=== PATIENT | female | born 1965 | race American Indian/Alaskan Native ===

== ENCOUNTER 2020-08-12 10:49 | Emergency (ER) | payer SELFPAY ==
[2020-08-12] MEDS ORDERED: cloNIDine 0.1 MG TAB PO ONE (11:37)
--- NOTE | 2020-08-12 12:04 | Emergency Department Report ---
ED General Adult HPI - General Chief complaint: High BP Stated complaint: hypertensive Time Seen by Provider: 08/12/20 11:19 Source: patient Mode of arrival: Ambulatory Limitations: No Limitations - History of Present Illness Initial comments: Patient is a 54-year-old female presents emergency room complaints of hypertension. Patient states that her blood pressure has been elevated for some time now. She states that she saw a primary care doctor was placed on nifedipine. Patient states that she has been having side effects further the nifedipine and stopped taking it a week ago. Patient states that she had not been on blood pressure medication for several years. She states that she was previously on a different blood pressure medication a few years ago but does not remember what she was taking at that time. She denies any symptoms. She denies any headache, chest pain, shortness of breath, vision changes, numbness, weakness, speech disturbance, gait disturbance. She denies any other past medical history. No allergies to medications. - Related Data Previous Rx's Medication Instructions Recorded Last Taken Type amLODIPine 10 mg PO DAILY #30 tab 08/12/20 Unknown Rx hydroCHLOROthiazide [Hctz] 12.5 mg PO QDAY #30 capsule 08/12/20 Unknown Rx Allergies Allergy/AdvReac Type Severity Reaction Status Date / Time No Known Allergies Allergy Verified 08/12/20 11:09 ED Review of Systems ROS: Stated complaint: hypertensive Other details as noted in HPI Comment: All other systems reviewed and negative ED Past Medical Hx - Social History Smoking Status: Current Every Day Smoker Substance Use Type: None - Medications Home Medications: Home Medications Medication Instructions Recorded Confirmed Last Taken Type amLODIPine 10 mg PO DAILY #30 tab 08/12/20 Unknown Rx hydroCHLOROthiazide [Hctz] 12.5 mg PO QDAY #30 capsule 08/12/20 Unknown Rx ED Physical Exam - General Limitations: No Limitations General appearance: alert, in no apparent distress - Head Head exam: Present: atraumatic, normocephalic - Eye Eye exam: Present: normal appearance, PERRL, EOMI - ENT ENT exam: Present: mucous membranes moist - Respiratory Respiratory exam: Present: normal lung sounds bilaterally. Absent: respiratory distress, wheezes, rales, rhonchi, stridor, chest wall tenderness, accessory muscle use, decreased breath sounds, prolonged expiratory - Cardiovascular Cardiovascular Exam: Present: regular rate, normal rhythm, normal heart sounds. Absent: systolic murmur, diastolic murmur, rubs, gallop - Neurological Exam Neurological exam: Present: alert, oriented X3, CN II-XII intact, normal gait. Absent: motor sensory deficit - Psychiatric Psychiatric exam: Present: normal affect, normal mood - Skin Skin exam: Present: warm, dry, intact ED Course Vital Signs 08/12/20 08/12/20 08/12/20 11:07 12:35 14:00 Temperature 98.6 F Pulse Rate 93 H 95 H Respiratory 18 Rate Blood Pressure 216/130 186/129 Blood Pressure 186/129 [Left] O2 Sat by Pulse 100 Oximetry ED Medical Decision Making - Lab Data Vital Signs 08/12/20 08/12/20 08/12/20 11:07 12:35 14:00 Temperature 98.6 F Pulse Rate 93 H 95 H Respiratory 18 Rate Blood Pressure 216/130 186/129 Blood Pressure 186/129 [Left] O2 Sat by Pulse 100 Oximetry - Medical Decision Making Patient is a 54-year-old female presents emergency room complaints of hypertension. Patient states that her blood pressure has been elevated for some time now. She states that she saw a primary care doctor was placed on nifedipine. Patient states that she has been having side effects further the nifedipine and stopped taking it a week ago. Patient states that she had not been on blood pressure medication for several years. She states that she was previously on a different blood pressure medication a few years ago but does not remember what she was taking at that time. She denies any symptoms. She denies any headache, chest pain, shortness of breath, vision changes, numbness, weakness, speech disturbance, gait disturbance. She denies any other past medical history. No allergies to medications. Vitals with significantly elevated blood pressure, otherwise stable. Patient is asymptomatic. She has no abnormality on physical examination as documented in chart. Patient given clonidine with mild improvement of blood pressure. Patient has been off blood pressure medication for over a week. Will place patient on amlodipine and hydrochlorothiazide. Advised patient Please take medication as prescribed. Increase your water intake. Eat a low-sodium diet. Incorporate 30 to 60 minutes of aerobic exercise. Follow-up with your primary care doctor. Return to emergency room for any new or worsening symptoms. Critical care attestation.: If time is entered above; I have spent that time in minutes in the direct care of this critically ill patient, excluding procedure time. ED Disposition Clinical Impression: HTN (hypertension) Qualifiers: Hypertension type: unspecified Qualified Code(s): I10 - Essential (primary) hypertension Disposition: TO HOME OR SELFCARE Is pt being admited?: No Does the pt Need Aspirin: No Condition: Stable Instructions: Managing Your Hypertension, Hypertension, Adult, Hypertension (ED) Additional Instructions: Please take medication as prescribed. Increase your water intake. Eat a low- sodium diet. Incorporate 30 to 60 minutes of aerobic exercise. Follow-up with your primary care doctor. Return to emergency room for any new or worsening symptoms. Prescriptions: amLODIPine 10 mg PO DAILY #30 tab hydroCHLOROthiazide [Hctz] 12.5 mg PO QDAY #30 capsule Referrals: TARIK ROJAS MD [Primary Care Provider] - 3-5 Days JÚNIOR ENCARNACION MD [Staff Physician] - 3-[address] [facility] [Provider Group] - 3-5 Days Time of Disposition: 13:14 Print Language: COLOMBIAN
[2020-08-12 12:38] VITALS: BP 186/129
== END 2020-08-12 13:30 | disposition home or self-care (01) ==
LOC: ED 10:49
DX: I10 Essential (primary) hypertension (principal); F17.200 Nicotine dependence, unspecified, uncomplicated; Z79.899 Other long term (current) drug therapy
CPT/HCPCS: 99282

== ENCOUNTER 2020-09-02 03:14 | Observation (INO) | payer SELFPAY ==
[2020-09-02 04:28] LABS: Eosinophils # (Auto) 0.1 K/mm3 (0.0-0.4); Eosinophils % (Auto) 2.9 % (0.0-4.3); Hematocrit 38.1 % (30.3-42.9); Hemoglobin 12.8 gm/dl (10.1-14.3); Lymphocytes # (Auto) 1.6 K/mm3 (1.2-5.4); Lymphocytes % (Auto) 40.7 % (13.4-35.0); Mean Corpuscular HGB Conc 34 % (30-34); Mean Corpuscular Volume 100 fl (79-97); Monocytes # (Auto) 0.6 K/mm3 (0.0-0.8); Monocytes % (Auto) 14.6 % (0.0-7.3); Platelet Count 154 K/mm3 (140-440); Red Blood Count 3.79 M/mm3 (3.65-5.03); Red Cell Distribution Width 14.2 % (13.2-15.2)
--- NOTE | 2020-09-02 04:35 | XRay Report ---
CHEST 1 VIEW 09/02/2020 3:26 AM INDICATION / CLINICAL INFORMATION: Chest Pain. COMPARISON: None available. FINDINGS: SUPPORT DEVICES: None. HEART / MEDIASTINUM: No significant abnormality. LUNGS / PLEURA: No significant pulmonary or pleural abnormality. No pneumothorax. ADDITIONAL FINDINGS: No significant additional findings. IMPRESSION: 1. No acute findings. Signer Name: Les Streeter MD Signed: 09/02/2020 4:31 AM Workstation Name: [id number]
[2020-09-02 04:43] LABS: Alanine Aminotransferase 22 units/L (7-56); Albumin 3.7 g/dL (3.9-5); BUN/Creatinine Ratio 18; Blood Urea Nitrogen 14 mg/dL (7-17); Calcium 8.7 mg/dL (8.4-10.2); Hemolysis Index 0
[2020-09-02 04:50] LABS: INR 0.92 (0.87-1.13)
[2020-09-02 04:51] LABS: Partial Thromboplastin Time 26.8 Sec. (24.2-36.6)
[2020-09-02] MEDS ORDERED: POTASSIUM CHLORIDE ER 20 MEQ TAB PO ONE (05:00)
--- NOTE | 2020-09-02 05:02 | Emergency Department Report ---
ED Chest Pain HPI - General Chief Complaint: Chest Pain Stated Complaint: CHEST PAINS Time Seen by Provider: 09/02/20 03:26 Source: patient Mode of arrival: Ambulatory Limitations: No Limitations - History of Present Illness Initial Comments: 54-year-old female with history of hypertension and TIA is brought in by EMS complaining of chest pain and shortness of breath. The patient reports that she has been having intermittent episodes of chest pain lasting seconds to a minute at a time which feels sharp and in the center of her chest. She also feels short of breath with it. It is coming and going. Her pain is nonradiating. There is no associated palpitations, nausea, sweating, back pain, abdominal pain, focal weakness, sensory changes, or any other symptoms. She does state that she has been drinking alcohol. When asked how much she has been drinking she is unable to give an exact amount but says that she has been drinking liquor. While in route to the hospital in the ambulance she was given full- strength aspirin and 1 dose of nitroglycerin. The patient states that those did not help her symptoms. She briefly had an episode of chest pain during the interview which lasted approximately 30 minutes and then resolved. Severity scale (0 -10): 9 - Related Data Previous Rx's Medication Instructions Recorded Last Taken Type amLODIPine 10 mg PO DAILY #30 tab 08/12/20 Unknown Rx hydroCHLOROthiazide [Hctz] 12.5 mg PO QDAY #30 capsule 08/12/20 Unknown Rx Allergies Allergy/AdvReac Type Severity Reaction Status Date / Time No Known Allergies Allergy Verified 08/12/20 11:09 Heart Score - HEART Score History: Moderately suspicious EKG: Non-specific Age: 45-65 Risk factors: 1-2 risk factors Troponin: < normal limit HEART Score: 4 - EKG Read Time Time EKG Completed: 03:46 EKG Read Time: 03:50 ED Review of Systems ROS: Stated complaint: CHEST PAINS Other details as noted in HPI Constitutional: denies: chills, fever Eyes: denies: eye pain, vision change ENT: denies: throat pain, congestion Respiratory: shortness of breath. denies: cough Cardiovascular: chest pain. denies: palpitations, edema, syncope Gastrointestinal: denies: abdominal pain, nausea, vomiting Genitourinary: denies: dysuria, frequency Musculoskeletal: denies: back pain, joint swelling Skin: denies: rash Neurological: denies: headache, weakness, numbness ED Past Medical Hx - Past Medical History Previous Medical History?: Yes Hx Hypertension: Yes Additional medical history: TIA - Surgical History Additional Surgical History: breast augmentation, facial lac repair - Social History Smoking Status: Current Every Day Smoker - Medications Home Medications: Home Medications Medication Instructions Recorded Confirmed Last Taken Type amLODIPine 10 mg PO DAILY #30 tab 08/12/20 Unknown Rx hydroCHLOROthiazide [Hctz] 12.5 mg PO QDAY #30 capsule 08/12/20 Unknown Rx ED Physical Exam - General Limitations: No Limitations - Other Other exam information: GENERAL: Well developed and well nourished. No acute distress HEAD: Normocephalic. No obvious signs of trauma. ENT: Moist mucous membranes. EYES: Extraocular movements are intact. Pupils are equal round and reactive to light bilaterally NECK: Supple. Full ROM is intact. Trachea is midline. LUNGS: Nonlabored breathing. Equal chest rise bilaterally. Clear to auscultation bilaterally. CARDIOVASCULAR: Regular rate and rhythm. No murmurs or rubs. VASCULAR: Cap refill < 2 seconds ABDOMEN: Abdomen is soft and nondistended. There is no significant tenderness, guarding or rebound. SKIN: Skin is warm and dry NEURO: Patient is awake, alert, and oriented. 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 No focal deficits. Normal motor and sensory exam throughout. Normal speech. MUSCULOSKELETAL: No obvious deformities. No significant tenderness. Normal ROM throughout. BACK/SPINE: No midline tenderness or step-offs of the C/T/L spine. No costovertebral angle tenderness. ED Course Vital Signs 09/02/20 09/02/20 09/02/20 03:34 03:46 04:00 Temperature Pulse Rate 84 90 Respiratory 14 21 Rate Blood Pressure 173/105 187/100 O2 Sat by Pulse 98 98 99 Oximetry 09/02/20 09/02/20 09/02/20 04:01 04:16 04:30 Temperature 97.9 F Pulse Rate 94 H 93 H 86 Respiratory 18 15 16 Rate Blood Pressure 187/100 187/100 187/100 O2 Sat by Pulse 98 97 98 Oximetry 09/02/20 09/02/20 09/02/20 04:56 05:00 05:16 Temperature Pulse Rate Respiratory Rate Blood Pressure 187/100 178/94 178/94 O2 Sat by Pulse 98 98 97 Oximetry 09/02/20 09/02/20 09/02/20 05:30 05:46 06:00 Temperature Pulse Rate 80 81 Respiratory 19 18 Rate Blood Pressure 187/100 187/100 142/87 O2 Sat by Pulse 96 95 95 Oximetry 09/02/20 06:16 Temperature Pulse Rate 80 Respiratory 16 Rate Blood Pressure 142/87 O2 Sat by Pulse 94 Oximetry SHERLEY score - Sherley Score Age > 65: (0) No Aspirin use within the Past 7 Days: (1) Yes 3 or more CAD Risk Factors: (0) No 2 or more Angina events in past 24 hrs: (1) Yes Known CAD with more than 50% Stenosis: (0) No Elevated Cardiac Markers: (0) No ST Deviation Greater than 0.5mm: (0) No SHERLEY Score: 2 ED Medical Decision Making - Lab Data Result diagrams: 09/02/20 03:48 09/02/20 03:48 Labs 09/02/20 09/02/20 09/02/20 03:48 03:48 03:48 WBC 3.9 L RBC 3.79 Hgb 12.8 Hct 38.1 MCV 100 H MCH 34 H MCHC 34 RDW 14.2 Plt Count 154 Lymph % (Auto) 40.7 H [place] % (Auto) 14.6 H Eos % (Auto) 2.9 Baso % (Auto) 1.0 Lymph # (Auto) 1.6 [place] # (Auto) 0.6 Eos # (Auto) 0.1 Baso # (Auto) 0.0 Seg Neutrophils % 40.8 Seg Neutrophils # 1.6 L PT 12.9 INR 0.92 APTT 26.8 Sodium Potassium Chloride Carbon Dioxide Anion Gap BUN Creatinine Estimated GFR BUN/Creatinine Ratio Glucose POC Glucose Calcium Magnesium Total Bilirubin AST ALT Alkaline Phosphatase Troponin T NT-Pro-B Natriuret Pep Total Protein Albumin Albumin/Globulin Ratio Lipase TSH HCG, Qual Negative Plasma/Serum Alcohol 09/02/20 09/02/20 09/02/20 03:48 03:48 03:48 WBC RBC Hgb Hct MCV MCH MCHC RDW Plt Count Lymph % (Auto) [place] % (Auto) Eos % (Auto) Baso % (Auto) Lymph # (Auto) [place] # (Auto) Eos # (Auto) Baso # (Auto) Seg Neutrophils % Seg Neutrophils # PT INR APTT Sodium 145 Potassium 3.4 L Chloride 106.7 Carbon Dioxide 25 Anion Gap 17 BUN 14 Creatinine 0.8 Estimated GFR > 60 BUN/Creatinine Ratio 18 Glucose 71 POC Glucose Calcium 8.7 Magnesium 1.90 Total Bilirubin 0.20 AST 38 ALT 22 Alkaline Phosphatase 78 Troponin T < 0.010 NT-Pro-B Natriuret Pep 74.09 Total Protein 7.0 Albumin 3.7 L Albumin/Globulin Ratio 1.1 Lipase 15 TSH 0.645 HCG, Qual Plasma/Serum Alcohol 09/02/20 09/02/20 04:11 05:19 WBC RBC Hgb Hct MCV MCH MCHC RDW Plt Count Lymph % (Auto) [place] % (Auto) Eos % (Auto) Baso % (Auto) Lymph # (Auto) [place] # (Auto) Eos # (Auto) Baso # (Auto) Seg Neutrophils % Seg Neutrophils # PT INR APTT Sodium Potassium Chloride Carbon Dioxide Anion Gap BUN Creatinine Estimated GFR BUN/Creatinine Ratio Glucose POC Glucose 64 L Calcium Magnesium Total Bilirubin AST ALT Alkaline Phosphatase Troponin T NT-Pro-B Natriuret Pep Total Protein Albumin Albumin/Globulin Ratio Lipase TSH HCG, Qual Plasma/Serum Alcohol 0.28 H - EKG Data -: EKG Interpreted by Me - EKG Data 09/02/20 05:24 Normal sinus rhythm. Normal axis. Normal intervals. LVH associated changes. No significant ST segment or T wave abnormalities. - Radiology Data CHEST 1 VIEW 09/02/2020 3:26 AM INDICATION / CLINICAL INFORMATION: Chest Pain. COMPARISON: None available. FINDINGS: SUPPORT DEVICES: None. HEART / MEDIASTINUM: No significant abnormality. LUNGS / PLEURA: No significant pulmona ry or pleural abnormality. No pneumothorax. ADDITIONAL FINDINGS: No significant additional findings. IMPRESSION: 1. No acute findings. Signer Name: eLs Streeter MD Signed: 09/02/2020 3:31 AM Workstation Name: [id number] - Medical Decision Making 54-year-old female who presents complaining of recurrent mid substernal chest pain with associated shortness of breath for the past few hours. She admits to drinking liquor. Patient was given aspirin and nitroglycerin in the ambulance. She is afebrile and with normal vital signs other than elevated blood pressure. Physical examination reveals no significant abnormalities. We will send a full set of labs and obtain EKG and chest x-ray. The patient was told to alert her nurse or other staff she had her chest pain return. On repeat assessment at 4:30 AM, she is lying comfortably in the bed. She reports no new symptoms. Labs have resulted and reveal no significant leukocytosis or anemia. Creatinine is within normal range and there are no significant electrolyte abnormalities with the exception of mild hypokalemia and potassium of 3.4. Initial troponin is negative. The patient's heart score is 4. The patient's chest x-ray is negative. I have ordered 40 mEq of potassium. On repeat assessment again at 5:15 AM, the patient is lying comfortably in the bed and reports no new chest pain or any other symptoms. I spoke to her about the fact that given her symptoms and her heart score, she should be admitted to the hospital for further work-up and management. She expressed understanding and agreement with this plan of care. At 5:10 AM, I spoke with Dr. Lieberman, the on-call hospitalist regarding the case and he accepts the patient for admission and will assume care. Critical care attestation.: If time is entered above; I have spent that time in minutes in the direct care of this critically ill patient, excluding procedure time. ED Disposition Clinical Impression: Hypokalemia, Angina pectoris, Alcohol intoxication Disposition: OP ADMIT IP TO THIS HOSP Is pt being admited?: Yes Condition: Stable
[2020-09-02] MEDS ORDERED: traMADol 50 MG TAB PO PRN (05:33)
[2020-09-02] MEDS ORDERED: NITROGLYCERIN 0.4 MG TAB SUBL SL PRN (05:33)
[2020-09-02] MEDS ORDERED: MORPHINE 4 MG/1 ML INJ IV PRN (05:33)
[2020-09-02] MEDS ORDERED: ACETAMINOPHEN 325 MG TAB PO PRN (05:33)
--- NOTE | 2020-09-02 05:41 | History and Physical Report ---
History of Present Illness Date of examination: 09/02/20 Date of admission: 09/01/20 Chief complaint: Chest pain History of present illness: 54-year-old female with past medical history of TIA and hypertension was brought to the emergency room because of chest pain and shortness of breath. Patient complained of chest pain which is sharp center of the chest 9/10 off and on for last couple of hours . She also feels short of breath with it. It is coming and going. Her pain is nonradiating. There is no associated palpitations, nausea, sweating, back pain, abdominal pain, focal weakness, sensory changes, or any other symptoms. She does state that she has been drinking alcohol. When asked how much she has been drinking she is unable to give an exact amount but says that she has been drinking liquor. While in route to the hospital in the ambulance she was given full-strength aspirin and 1 dose of nitroglycerin. The patient states that those did not help her symptoms. She briefly had an episode of chest pain in the emergency room Initial cardiac enzyme is negative daily troponin is 0.010 Past History Past Medical History: hypertension, stroke Medications and Allergies Allergies Allergy/AdvReac Type Severity Reaction Status Date / Time No Known Allergies Allergy Verified 08/12/20 11:09 Home Medications Medication Instructions Recorded Confirmed Last Taken Type amLODIPine 10 mg PO DAILY #30 tab 08/12/20 Unknown Rx hydroCHLOROthiazide [Hctz] 12.5 mg PO QDAY #30 capsule 08/12/20 Unknown Rx Review of Systems Cardiovascular: chest pain, shortness of breath Respiratory: shortness of breath Exam - Constitutional Vitals: Temp Pulse Resp BP Pulse Ox 97.9 F 86 16 187/100 98 09/02/20 04:01 09/02/20 04:30 09/02/20 04:30 09/02/20 04:30 09/02/20 04:30 General appearance: Present: no acute distress, well-nourished - EENT Eyes: Present: PERRL ENT: hearing intact, clear oral mucosa - Neck Neck: Present: supple, normal ROM - Respiratory Respiratory effort: normal Respiratory: bilateral: CTA - Cardiovascular Heart Sounds: Present: S1 & S2. Absent: rub, click - Extremities Extremities: pulses symmetrical, No edema Peripheral Pulses: within normal limits - Abdominal General gastrointestinal: Present: soft, non-tender, non-distended, normal bowel sounds Female genitourinary: Present: normal - Integumentary Integumentary: Present: clear, warm, dry - Musculoskeletal Musculoskeletal: gait normal, strength equal bilaterally - Psychiatric Psychiatric: appropriate mood/affect, intact judgment & insight - Neurologic Neurologic: CNII-XII intact, moves all extremities HEART Score - HEART Score EKG: Non-specific Age: 45-65 Risk factors: 1-2 risk factors Troponin: Troponin T < 0.010 ng/mL (0.00-0.029) 09/02/20 03:48 Troponin: < normal limit Results - Labs CBC & Chem 7: 09/02/20 03:48 09/02/20 03:48 Labs: Laboratory Last Values WBC 3.9 K/mm3 (4.5-11.0) L 09/02/20 03:48 RBC 3.79 M/mm3 (3.65-5.03) 09/02/20 03:48 Hgb 12.8 gm/dl (10.1-14.3) 09/02/20 03:48 Hct 38.1 % (30.3-42.9) 09/02/20 03:48 MCV 100 fl (79-97) H 09/02/20 03:48 MCH 34 pg (28-32) H 09/02/20 03:48 MCHC 34 % (30-34) 09/02/20 03:48 RDW 14.2 % (13.2-15.2) 09/02/20 03:48 Plt Count 154 K/mm3 (140-440) 09/02/20 03:48 Lymph % (Auto) 40.7 % (13.4-35.0) H 09/02/20 03:48 [place] % (Auto) 14.6 % (0.0-7.3) H 09/02/20 03:48 Eos % (Auto) 2.9 % (0.0-4.3) 09/02/20 03:48 Baso % (Auto) 1.0 % (0.0-1.8) 09/02/20 03:48 Lymph # (Auto) 1.6 K/mm3 (1.2-5.4) 09/02/20 03:48 [place] # (Auto) 0.6 K/mm3 (0.0-0.8) 09/02/20 03:48 Eos # (Auto) 0.1 K/mm3 (0.0-0.4) 09/02/20 03:48 Baso # (Auto) 0.0 K/mm3 (0.0-0.1) 09/02/20 03:48 Seg Neutrophils % 40.8 % (40.0-70.0) 09/02/20 03:48 Seg Neutrophils # 1.6 K/mm3 (1.8-7.7) L 09/02/20 03:48 PT 12.9 Sec. (12.2-14.9) 09/02/20 03:48 INR 0.92 (0.87-1.13) 09/02/20 03:48 APTT 26.8 Sec. (24.2-36.6) 09/02/20 03:48 Sodium 145 mmol/L (137-145) 09/02/20 03:48 Potassium 3.4 mmol/L (3.6-5.0) L 09/02/20 03:48 Chloride 106.7 mmol/L (98-107) 09/02/20 03:48 Carbon Dioxide 25 mmol/L (22-30) 09/02/20 03:48 Anion Gap 17 mmol/L 09/02/20 03:48 BUN 14 mg/dL (7-17) 09/02/20 03:48 Creatinine 0.8 mg/dL (0.6-1.2) 09/02/20 03:48 Estimated GFR > 60 ml/min 09/02/20 03:48 BUN/Creatinine Ratio 18 % 09/02/20 03:48 Glucose 71 mg/dL (65-100) 09/02/20 03:48 POC Glucose 64 mg/dL (70-105) L 09/02/20 04:11 Calcium 8.7 mg/dL (8.4-10.2) 09/02/20 03:48 Magnesium 1.90 mg/dL (1.7-2.3) 09/02/20 03:48 Total Bilirubin 0.20 mg/dL (0.1-1.2) 09/02/20 03:48 AST 38 units/L (5-40) 09/02/20 03:48 ALT 22 units/L (7-56) 09/02/20 03:48 Alkaline Phosphatase 78 units/L (35-129) 09/02/20 03:48 Troponin T < 0.010 ng/mL (0.00-0.029) 09/02/20 03:48 NT-Pro-B Natriuret Pep 74.09 pg/mL (0-900) 09/02/20 03:48 Total Protein 7.0 g/dL (6.3-8.2) 09/02/20 03:48 Albumin 3.7 g/dL (3.9-5) L 09/02/20 03:48 Albumin/Globulin Ratio 1.1 % 09/02/20 03:48 Lipase 15 units/L (13-60) 09/02/20 03:48 TSH 0.645 mlU/mL (0.270-4.200) 09/02/20 03:48 HCG, Qual Negative (Negative) 09/02/20 03:48 - Imaging and Cardiology Chest x-ray: report reviewed Assessment and Plan VTE prophylaxis?: Chemical Plan of care discussed with patient/family: Yes - Patient Problems (1) Acute coronary syndrome Current Visit: Yes Status: Acute Plan to address problem: Admit to cardiac telemetry. Aspirin 81 mg p.o. daily. Lipitor 40 mg p.o. daily. Nitroglycerin as needed. Serial cardiac enzyme. Nuclear stress test Lexiscan. Consult cardiology if needed (2) Hypertension Current Visit: Yes Status: Acute Plan to address problem: Norvasc 10 mg p.o. daily. Hydrochlorothiazide 12.5 mg p.o. daily. We will monitor the blood pressure closely (3) TIA (transient ischemic attack) Current Visit: Yes Status: Acute Plan to address problem: Aspirin 81 mg p.o. daily. Lipitor 40 mg p.o. daily. We will monitor the patient closely (4) Alcohol abuse Current Visit: Yes Status: Acute Plan to address problem: Patient counseled regarding quit drinking. We will put the patient on banana bag including thiamine and folic acid (5) Hypokalemia Current Visit: Yes Status: Acute Plan to address problem: Potassium is supplemented. Recheck BMP in the morning (6) DVT prophylaxis Current Visit: Yes Status: Acute Plan to address problem: Heparin 5000 units subcu every 8 hours for DVT prophylaxis. Protonix 40 mg p.o. daily for GI prophylaxis. Patient is a full code
[2020-09-02 05:42] LABS: Bilirubin,Urine NEG (Negative); Blood,Urine MOD (Negative); Color,Urine Yellow (Yellow); Mucus,Urine FEW /HPF; Protein,Urine <15 mg/dL mg/dL (Negative); WBC,Urine < 1.0 /HPF (0.0-6.0)
[2020-09-02 05:46] LABS: Amphetamine Screen,Urine PRESUMPTIVE NEGATIVE; Benzodiazepines Screen,Urine PRESUMPTIVE NEGATIVE; Cannabinoid Screen,Urine PRESUMPTIVE NEGATIVE; Cocaine Screen,Urine PRESUMPTIVE NEGATIVE; Methadone Screen,Urine PRESUMPTIVE NEGATIVE; Opiate Screen,Urine PRESUMPTIVE NEGATIVE
[2020-09-02 08:00] LABS: Blood Urea Nitrogen 12 mg/dL (7-17); Calcium 8.9 mg/dL (8.4-10.2); Hemolysis Index 0
[2020-09-02 08:01] LABS: BUN/Creatinine Ratio 17
[2020-09-02 08:03] LABS: Eosinophils # (Auto) 0.1 K/mm3 (0.0-0.4); Eosinophils % (Auto) 2.8 % (0.0-4.3); Hematocrit 38.4 % (30.3-42.9); Hemoglobin 13.1 gm/dl (10.1-14.3); Lymphocytes # (Auto) 1.7 K/mm3 (1.2-5.4); Lymphocytes % (Auto) 45.3 % (13.4-35.0); Mean Corpuscular HGB Conc 34 % (30-34); Mean Corpuscular Volume 100 fl (79-97); Monocytes # (Auto) 0.5 K/mm3 (0.0-0.8); Monocytes % (Auto) 14.1 % (0.0-7.3); Platelet Count 154 K/mm3 (140-440); Red Blood Count 3.83 M/mm3 (3.65-5.03); Red Cell Distribution Width 14.3 % (13.2-15.2)
[2020-09-02] MEDS ORDERED: REGADENOSON 0.4 MG/5 ML INJ IV ONE ×2 (08:35→08:36)
[2020-09-02] MEDS: THIAMINE 100 MG, FOLIC ACID 1 MG, MULTIPLE VITAMIN INJ, ADULT 10 ML in SODIUM CHLORIDE ... IV ONE ×2 (08:43→11:26)
[2020-09-02] MEDS ORDERED: hydrALAZINE 20 MG/1 ML INJ IV SCH (09:00)
--- NOTE | 2020-09-02 09:55 | Electrocardiograph Report ---
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
[2020-09-02] MEDS ORDERED: amLODIPine 10 MG TAB PO SCH (10:00)
[2020-09-02] MEDS: NICOTINE 21 MG/24 HR PATCH TD SCH (11:20)
[2020-09-02] MEDS: PANTOPRAZOLE 40 MG TAB PO SCH (11:21)
[2020-09-02] MEDS: hydroCHLOROthiazide 12.5 MG CAP PO SCH (11:21)
[2020-09-02] MEDS ORDERED: hydrALAZINE 20 MG/1 ML INJ IV PRN (11:30)
--- NOTE | 2020-09-02 12:00 | Nuclear Medicine Report ---
APPROVED REPORT Exam: Nuclear Stress Test Indication: Chest pain BMI: 0 Stress Test Details HR Max Heart Rate (APMHR): 166.160210 bpm Target HR (85% APMHR): 141.352174 bpm BP ECG NM EXAM: Myocardial Perfusion REST/STRESS Resting Data Rest SPECT myocardial perfusion imaging was performed in supine position 45 minutes following the intravenous injection of 10 mCi of Tc-99m Myoview. Time of rest injection: 0700 Pharmacologic Stress Pharmacologic stress test was performed by injecting Regadenoson 0.4 mg IV push followed by the intravenous injection of 28 mCi of Tc-99m Myoview. Time of stress injection: 0900 Gated Stress SPECT was performed 30 minutes after stress injection. The images were gated to evaluate regional wall motion and calculate left ventricular ejection fraction. Study Data TID = 1.12. Perfusion Nuclear Conclusion ECG Findings: negative for ischemia Clinical Findings: negative for ischemia Nuclear Findings: negative for ischemia Exercise Capacity: not assessed Left Ventricular Function: normal Normal study. No scintigraphic evidence for myocardial ischemia or scar. Normal left ventricular size and function with no regional wall motion abnormalities.
--- NOTE | 2020-09-02 12:21 | Event Note ---
Date: 09/02/20 Patient seen and examined, stress test was completed, no ischemia seen, echocardiogram has been ordered, apparently patient has a history of chronic hypertension, patient has been prescribed medication in the past and has refused to take it, severe noncompliance. Blood pressure continues not to be controlled, will make adjustments to medication as needed, evaluate heart function, anticipate discharge within the next 24 hours. Pertaining to TIA, patient is not exhibiting any signs of TIA or reporting any signs of neurological deficits. Agree with assessment and plan as outlined by admitting physician.
[2020-09-02] MEDS ORDERED: LORazepam 2 MG/ML VIAL IV PRN ×2 (12:30)
[2020-09-02] MEDS: HEPARIN 5,000 UNIT/1 ML VIAL SUB-Q SCH ×3 (13:04→22:51)
[2020-09-03 06:12] LABS: Blood Urea Nitrogen 11 mg/dL (7-17); Calcium 9.2 mg/dL (8.4-10.2); Hemolysis Index 15
[2020-09-03 06:13] LABS: BUN/Creatinine Ratio 16
[2020-09-03] MEDS: HEPARIN 5,000 UNIT/1 ML VIAL SUB-Q SCH (06:39)
[2020-09-03] MEDS ORDERED: ASPIRIN 81 MG TAB CHEW PO SCH (10:00)
[2020-09-03] MEDS ORDERED: NIFEdipine XL 60 MG TAB PO SCH (10:00)
--- NOTE | 2020-09-03 10:17 | Electrocardiograph Report ---
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
--- NOTE | 2020-09-03 10:26 | Electrocardiograph Report ---
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
[2020-09-03] MEDS: PANTOPRAZOLE 40 MG TAB PO SCH (10:31)
[2020-09-03] MEDS: NICOTINE 21 MG/24 HR PATCH TD SCH (10:31)
[2020-09-03] MEDS: hydroCHLOROthiazide 12.5 MG CAP PO SCH (10:32)
--- NOTE | 2020-09-03 10:37 | Discharge Summary ---
Providers - Providers Date of Admission: 09/02/20 06:06 Date of discharge: 09/03/20 Attending physician: EUSEBIO BINGHAM 09/02/20 Consult to Cardiac Rehabilitation [CONS] Routine Reason For Exam: Phase I Primary care physician: CAMPAIGN CONSULTANT Hospitalization Reason for admission: cp, accelerated hypertension Condition: Stable Hospital course: 54-year-old female with past medical history of TIA and hypertension who presented through the emergency department with complaints of chest pain. Cardiology was consulted and patient underwent stress test which showed no ischemia. However patient had accelerated hypertension requiring adjustments of medication. Patient was started on Procardia 60 mg twice daily with improvement in BP control. Etiology of chest pain likely secondary to GERD. Therefore, patient is felt to have received maximal hospital benefit for discharge. Dedicated discharge time 32 minutes Disposition: DC-01 TO HOME OR SELFCARE Final Discharge Diagnosis (Prints w/discharge instructions): Chest pain, probable GERD, accelerated hypertension Core Measure Documentation - Palliative Care Palliative Care/ Comfort Measures: Not Applicable - Core Measures Any of the following diagnoses?: none Exam - Constitutional Vitals: Temp Pulse Resp BP Pulse Ox 98.1 F 77 18 166/111 97 09/03/20 08:26 09/03/20 08:26 09/03/20 08:26 09/03/20 08:26 09/03/20 08:26 General appearance: Present: no acute distress, well-nourished - EENT Eyes: Present: PERRL ENT: hearing intact, clear oral mucosa - Neck Neck: Present: supple, normal ROM - Respiratory Respiratory effort: normal Respiratory: bilateral: CTA - Cardiovascular Heart Sounds: Present: S1 & S2. Absent: rub, click - Extremities Extremities: pulses symmetrical, No edema Peripheral Pulses: within normal limits - Abdominal General gastrointestinal: Present: soft, non-tender, non-distended, normal bowel sounds Female genitourinary: Present: normal - Integumentary Integumentary: Present: clear, warm, dry - Musculoskeletal Musculoskeletal: gait normal, strength equal bilaterally - Psychiatric Psychiatric: appropriate mood/affect, intact judgment & insight - Neurologic Neurologic: CNII-XII intact, moves all extremities Plan Activity: advance as tolerated Weight Bearing Status: Weight Bear as Tolerated Follow up with: PRIMARY CARE, [Primary Care Provider] - 3-5 Days Prescriptions: Aspirin [Aspirin BABY CHEW TAB] 81 mg PO QDAY #30 tab.chew hydroCHLOROthiazide [HCTZ] 12.5 mg PO QDAY #30 capsule AtorvaSTATin [Lipitor] 40 mg PO QHS #30 tablet NIFEdipine XL [Procardia Xl] 60 mg PO Q12HR #60 tablet Pantoprazole [Protonix TAB] 40 mg PO QDAY #30 tablet
[2020-09-03 12:19] VITALS: BP 160/100
== END 2020-09-03 16:00 | disposition home or self-care (01) ==
LOC: ED 03:14 → 4A 06:06
PROVIDERS: ADMIT Hospitalist; ATTEND Hospitalist
DX: I24.9 Acute ischemic heart disease, unspecified (principal); I10 Essential (primary) hypertension; G45.9 Transient cerebral ischemic attack, unspecified; E87.6 Hypokalemia; F10.129 Alcohol abuse with intoxication, unspecified; F17.210 Nicotine dependence, cigarettes, uncomplicated; Z79.899 Other long term (current) drug therapy; Z98.890 Other specified postprocedural states
CPT/HCPCS: 36415; 71045; 78452; 80048; 80053; 80307; 81001; 82962; 83690; 83735; 83880; 84443; 84484; 84703; 85025; 85610; 85730; 93005; 93017; 93306; 96365; 96366; 96372; 96375; 96376; 99285; 99406; A9270; A9502; G0378; J0360; J1644; J2785; J3411; J7030; 80320; G0480

== ENCOUNTER 2021-03-24 12:49 | Emergency (ER) | payer SELFPAY ==
[2021-03-24] MEDS ORDERED: cloNIDine 0.1 MG TAB PO ONE ×2 (15:23→17:40)
--- NOTE | 2021-03-24 15:25 | Emergency Department Report ---
ED General Adult HPI - General Chief complaint: Weakness Stated complaint: weakness Time Seen by Provider: 03/24/21 15:16 Source: patient, EMS Mode of arrival: Stretcher Limitations: No Limitations - History of Present Illness Initial comments: Patient is 55 years old female with history of hypertension, noncompliant with her medication. Patient also had history of CVA with no residual weakness according to the patient report. Patient presented to the ER complaining of generalized weakness and pain. Patient initially stated that she came here bec ause her blood pressure was high and then she added that she had generalized body pain. She denied any fever or chills. Patient denied any chest pain, shortness of breath, cough, abdominal pain, nausea or vomiting. Patient found to have a blood pressure of 190/90. -: days(s) Location: back, upper extremity, lower extremity Severity scale (0 -10): 3 Consistency: intermittent Associated Symptoms: denies other symptoms - Related Data Previous Rx's Medication Instructions Recorded Last Taken Type Aspirin [Aspirin BABY CHEW TAB] 81 mg PO QDAY #30 tab.chew 09/03/20 Unknown Rx AtorvaSTATin [Lipitor] 40 mg PO QHS #30 tablet 09/03/20 Unknown Rx NIFEdipine XL [Procardia Xl] 60 mg PO Q12HR #60 tablet 09/03/20 Unknown Rx Pantoprazole [Protonix TAB] 40 mg PO QDAY #30 tablet 09/03/20 Unknown Rx hydroCHLOROthiazide [HCTZ] 12.5 mg PO QDAY #30 capsule 09/03/20 Unknown Rx Allergies Allergy/AdvReac Type Severity Reaction Status Date / Time No Known Allergies Allergy Verified 08/12/20 11:09 ED Review of Systems ROS: Stated complaint: weakness Other details as noted in HPI Comment: All other systems reviewed and negative Constitutional: denies: chills, fever Respiratory: denies: cough, shortness of breath, SOB with exertion, SOB at rest, wheezing Cardiovascular: denies: chest pain, palpitations, dyspnea on exertion Gastrointestinal: denies: abdominal pain, nausea, vomiting Genitourinary: denies: urgency, dysuria, frequency, hematuria Musculoskeletal: back pain Neurological: weakness. denies: headache, numbness, paresthesias, confusion, abnormal gait ED Past Medical Hx - Past Medical History Hx Hypertension: Yes Hx CVA: Yes Additional medical history: TIA - Surgical History Additional Surgical History: breast augmentation, facial lac repair - Social History Smoking Status: Current Every Day Smoker - Medications Home Medications: Home Medications Medication Instructions Recorded Confirmed Last Taken Type Aspirin [Aspirin BABY CHEW TAB] 81 mg PO QDAY #30 tab.chew 09/03/20 Unknown Rx AtorvaSTATin [Lipitor] 40 mg PO QHS #30 tablet 09/03/20 Unknown Rx NIFEdipine XL [Procardia Xl] 60 mg PO Q12HR #60 tablet 09/03/20 Unknown Rx Pantoprazole [Protonix TAB] 40 mg PO QDAY #30 tablet 09/03/20 Unknown Rx hydroCHLOROthiazide [HCTZ] 12.5 mg PO QDAY #30 capsule 09/03/20 Unknown Rx ED Physical Exam - General Limitations: No Limitations General appearance: alert, in no apparent distress - Head Head exam: Present: atraumatic, normocephalic, normal inspection - Eye Eye exam: Present: normal appearance, PERRL - ENT ENT exam: Present: normal exam, normal orophraynx, mucous membranes moist - Neck Neck exam: Present: normal inspection, full ROM. Absent: tenderness, meningismus - Respiratory Respiratory exam: Present: normal lung sounds bilaterally - Cardiovascular Cardiovascular Exam: Present: regular rate, normal rhythm, normal heart sounds - GI/Abdominal GI/Abdominal exam: Present: soft, normal bowel sounds. Absent: distended, tenderness, guarding, rebound, rigid, organomegaly, mass, bruit, pulsatile mass, hernia - Extremities Exam Extremities exam: Present: normal inspection, full ROM, normal capillary refill. Absent: tenderness - Back Exam Back exam: Present: normal inspection, full ROM. Absent: CVA tenderness (R), CVA tenderness (L) - Neurological Exam Neurological exam: Present: alert, oriented X3, CN II-XII intact, normal gait, reflexes normal. Absent: motor sensory deficit - Psychiatric Psychiatric exam: Present: normal mood - Skin Skin exam: Present: warm, intact, normal color ED Course Vital Signs 03/24/21 03/24/21 03/24/21 12:53 15:35 17:56 Temperature 97.8 F Pulse Rate 96 H 90 98 H Respiratory 18 Rate Blood Pressure 186/115 181/140 Blood Pressure 190/98 [Right] ED Medical Decision Making - Lab Data Result diagrams: 03/24/21 16:01 03/24/21 16:01 Critical care attestation.: If time is entered above; I have spent that time in minutes in the direct care of this critically ill patient, excluding procedure time. ED Disposition Clinical Impression: Generalized weakness Disposition: 07 LEFT AWOL/ELOPED Is pt being admited?: No Condition: Stable
--- NOTE | 2021-03-24 16:12 | XRay Report ---
CHEST 1 VIEW INDICATION / CLINICAL INFORMATION: Weakness. COMPARISON: 09/02/2020 FINDINGS: SUPPORT DEVICES: None. HEART / MEDIASTINUM: No significant abnormality. LUNGS / PLEURA: No significant pulmonary or pleural abnormality. No pneumothorax. ADDITIONAL FINDINGS: No significant additional findings. IMPRESSION: 1. No acute findings. Signer Name: Armando Blevins MD Signed: 03/24/2021 4:08 PM Workstation Name: [id number]
[2021-03-24 16:42] LABS: Hematocrit 46.6 % (30.3-42.9); Hemoglobin 15.3 gm/dl (10.1-14.3); Mean Corpuscular HGB Conc 33 % (30-34); Mean Corpuscular Volume 99 fl (79-97); Platelet Count 199 K/mm3 (140-440); Red Blood Count 4.72 M/mm3 (3.65-5.03); Red Cell Distribution Width 13.7 % (13.2-15.2)
[2021-03-24 16:47] LABS: Basophils % (Auto) 0.3 % (0.0-1.8); Eosinophils % (Auto) 0.5 % (0.0-4.3); Lymphocytes # (Auto) 1.5 K/mm3 (1.2-5.4); Lymphocytes % (Auto) 20.8 % (13.4-35.0); Monocytes # (Auto) 0.4 K/mm3 (0.0-0.8); Monocytes % (Auto) 5.4 % (0.0-7.3)
[2021-03-24 17:59] VITALS: BP 181/140
[2021-03-24 18:24] LABS: BUN/Creatinine Ratio 16; Blood Urea Nitrogen 14 mg/dL (7-17); Calcium 9.2 mg/dL (8.4-10.2); Hemolysis Index 7
== END 2021-03-24 19:40 | disposition left against medical advice (07) ==
LOC: ED 12:49
DX: M62.81 Muscle weakness (generalized) (principal); F17.200 Nicotine dependence, unspecified, uncomplicated; I10 Essential (primary) hypertension
CPT/HCPCS: 36415; 71045; 80048; 84484; 85025; 99284

== ENCOUNTER 2021-04-09 07:00 | Emergency (ER) | payer SELFPAY ==
[2021-04-09] MEDS ORDERED: hydroCHLOROthiazide 12.5 MG CAP PO ONE (09:34)
[2021-04-09] MEDS ORDERED: NIFEdipine XL 60 MG TAB PO ONE (09:34)
--- NOTE | 2021-04-09 09:36 | Emergency Department Report ---
ED General Adult HPI - General Chief complaint: High BP Stated complaint: HIGH BP Time Seen by Provider: 04/09/21 09:33 Source: patient Mode of arrival: Ambulatory Limitations: No Limitations - History of Present Illness Initial comments: 55 yo comes to ER with a/c HTN and requesting med refill Denies Cp or sob Did not see pcp ambulatory and nad on arrival to ER - Related Data Previous Rx's Medication Instructions Recorded Last Taken Type Aspirin [Aspirin BABY CHEW TAB] 81 mg PO QDAY #30 tab.chew 04/09/21 Unknown Rx AtorvaSTATin [Lipitor] 40 mg PO QHS #30 tablet 04/09/21 Unknown Rx NIFEdipine XL [Procardia Xl] 60 mg PO Q12HR #60 tablet 04/09/21 Unknown Rx Pantoprazole [Protonix TAB] 40 mg PO QDAY #30 tablet 04/09/21 Unknown Rx hydroCHLOROthiazide [HCTZ] 12.5 mg PO QDAY #30 capsule 04/09/21 Unknown Rx Allergies Allergy/AdvReac Type Severity Reaction Status Date / Time No Known Allergies Allergy Verified 08/12/20 11:09 ED Review of Systems ROS: Stated complaint: HIGH BP Other details as noted in HPI Comment: All other systems reviewed and negative ED Past Medical Hx - Past Medical History Previous Medical History?: Yes Hx Hypertension: Yes Hx CVA: Yes Additional medical history: TIA - Surgical History Past Surgical History?: Yes Additional Surgical History: breast augmentation, facial lac repair - Family History Family history: no significant - Social History Smoking Status: Current Every Day Smoker Substance Use Type: None - Medications Home Medications: Home Medications Medication Instructions Recorded Confirmed Last Taken Type Aspirin [Aspirin BABY CHEW TAB] 81 mg PO QDAY #30 tab.chew 04/09/21 Unknown Rx AtorvaSTATin [Lipitor] 40 mg PO QHS #30 tablet 04/09/21 Unknown Rx NIFEdipine XL [Procardia Xl] 60 mg PO Q12HR #60 tablet 04/09/21 Unknown Rx Pantoprazole [Protonix TAB] 40 mg PO QDAY #30 tablet 04/09/21 Unknown Rx hydroCHLOROthiazide [HCTZ] 12.5 mg PO QDAY #30 capsule 04/09/21 Unknown Rx ED Physical Exam - General Limitations: No Limitations General appearance: alert, in no apparent distress - Head Head exam: Present: atraumatic, normocephalic - Eye Eye exam: Present: normal appearance - ENT ENT exam: Present: mucous membranes moist - Neck Neck exam: Present: normal inspection - Respiratory Respiratory exam: Present: normal lung sounds bilaterally. Absent: respiratory distress - Cardiovascular Cardiovascular Exam: Present: regular rate, normal rhythm. Absent: systolic murmur, diastolic murmur, rubs, gallop - GI/Abdominal GI/Abdominal exam: Present: soft, normal bowel sounds - Extremities Exam Extremities exam: Present: normal inspection - Back Exam Back exam: Present: normal inspection - Neurological Exam Neurological exam: Present: alert, oriented X3 - Psychiatric Psychiatric exam: Present: normal affect, normal mood - Skin Skin exam: Present: warm, dry, intact, normal color. Absent: rash ED Course Vital Signs 04/09/21 04/09/21 09:32 10:21 Temperature 98.7 F Pulse Rate 87 84 Respiratory 18 16 Rate Blood Pressure 197/114 196/110 [Right] O2 Sat by Pulse 97 99 Oximetry ED Medical Decision Making - Medical Decision Making Vital Signs 04/09/21 04/09/21 09:32 10:21 Temperature 98.7 F Pulse Rate 87 84 Respiratory 18 16 Rate Blood Pressure 197/114 196/110 [Right] O2 Sat by Pulse 97 99 Oximetry a/c htn comes to ER for med refill has not had meds in 2 weeks does not have insurance so she has not seen pcp Lissa given her a dose of her bp meds and dc her with rx and instructions that ER would not continue to fill her meds On dc pt verbalizes understanding of plan of care - Differential Diagnosis a/c htn med refill Critical care attestation.: If time is entered above; I have spent that time in minutes in the direct care of this critically ill patient, excluding procedure time. ED Disposition Clinical Impression: Non-adherence to medical treatment, Medication refill Hypertension Qualifiers: Hypertension type: unspecified Qualified Code(s): I10 - Essential (primary) hypertension Disposition: 01 HOME / SELF CARE / HOMELESS Is pt being admited?: No Does the pt Need Aspirin: No Condition: Stable Instructions: Hypertension (ED) Additional Instructions: follow up with pcp for refills referrals below Prescriptions: AtorvaSTATin [Lipitor] 40 mg PO QHS #30 tablet Aspirin [Aspirin BABY CHEW TAB] 81 mg PO QDAY #30 tab.chew hydroCHLOROthiazide [HCTZ] 12.5 mg PO QDAY #30 capsule NIFEdipine XL [Procardia Xl] 60 mg PO Q12HR #60 tablet Pantoprazole [Protonix TAB] 40 mg PO QDAY #30 tablet Referrals: JÚNIOR ENCARNACION MD [Staff Physician] - 3-5 Days [facility] [Outside] - 3-5 Days Time of Disposition: 09:34
[2021-04-09] MEDS ORDERED: NIFEdipine XL 60 MG TAB PO SCH (10:00)
[2021-04-09 10:21] VITALS: BP 196/110
== END 2021-04-09 10:22 | disposition home or self-care (01) ==
LOC: ED 07:00
DX: I10 Essential (primary) hypertension (principal); F17.200 Nicotine dependence, unspecified, uncomplicated; Z76.0 Encounter for issue of repeat prescription; Z79.82 Long term (current) use of aspirin; Z79.899 Other long term (current) drug therapy
CPT/HCPCS: 99282